=== PATIENT | female | born 1950 | race Caucasian/White ===

== ENCOUNTER → 2018-05-09 09:48 | Outpatient (CLI) | payer MEDICARE, MEDICAID, SELFPAY ==
--- NOTE | 2018-05-09 09:59 | DI.MRI.S_ITS ---
PROCEDURE: MR CERVICAL SPINE WO CON INDICATIONS: severe C6-C7 stenosis TECHNIQUE: Noncontrast sagittal T1 spin echo and T2 fast spin echo, sagittal STIR, foraminal oblique sagittal T2 fast spin echo, and axial gradient echo or T2 fast spin echo through the cervical spine. COMPARISON: [facility], MR, C-SPINE WITHOUT CONTRAST, 03/29/2017, 11:31. Outside Facility, RG, CT FULL SPINE, 07/19/2016, 14:03. [facility], MR, C-SPINE WITHOUT CONTRAST, 02/04/2016, 12:52. [facility], MR, C-SPINE WITHOUT CONTRAST, 05/20/2015, 8:58. [facility], CT, C-SPINE WITHOUT CONTRAST, 01/21/2015, 14:11. [facility], CT, C-SPINE WITHOUT CONTRAST, 05/16/2014, 23:15. [facility], MR, C-SPINE WITHOUT CONTRAST, 07/03/2009, 8:59. FINDINGS: Image quality: Excellent. Alignment and Curvature: There is normal bony alignment. Bone Marrow: Benign, intraosseous hemangioma noted in the T1 vertebral body is stable compared to prior exams. 1.0 cm in diameter sclerotic lesion in the T1 vertebral body is stable compared to prior examinations obtained 03/29/17/07/19/2016, 02/04/2016 and 05/20/2015. Spinal Cord: Visualized spinal cord has normal size and signal. No cerebellar tonsillar herniation. Paraspinous Soft Tissues: No paravertebral masses. Prevertebral soft tissues are normal in thickness. C2-C3: Loss of disc signal. Small central disc protrusion. Mild right and moderate left facet hypertrophy. Mild narrowing of the central canal secondary to disc disease. Moderate left neural foraminal narrowing secondary to disc and facet disease which is progressed slightly in interval since prior exam obtained 03/29/17. C3-C4: Loss of the signal. Mild, diffuse disc bulge. Small central disc protrusion. Small disc protrusion abuts and slightly flattens the anterior margin of the cervical spinal cord which is stable compared to prior examinations. [id number] narrowing of the central canal secondary to disc disease. Mild bilateral facet hypertrophy. Mild right uncovertebral joint hypertrophy. Moderate right and mild left neural foraminal narrowing secondary to disc disease, facet hypertrophy and uncovertebral joint hypertrophy which is stable in appearance compared to MRI obtained 03/29/17. C4-C5: Loss of disc signal and mild loss of disc height. Mild, diffuse disc bulge. Diffuse disc bulge abuts the anterior margin of the cervical spinal cord causing slight flattening deformity. Mild bilateral facet hypertrophy. Moderate to severe narrowing of the central canal secondary to disc disease and facet hypertrophy. Mild right uncovertebral joint hypertrophy. Moderate right and mild left neural foraminal narrowing secondary to disc disease, facet hypertrophy and uncovertebral joint hypertrophy which is stable compared to 03/29/17. C5-C6: Loss of disc signal and height. Anterior endplate osteophytosis. Mild, diffuse disc bulge. Mild bilateral facet hypertrophy. Moderate to severe narrowing of the central canal secondary to disc disease and facet hypertrophy which has progressed slightly in interval since prior exam obtained 03/29/2017. Mild to moderate bilateral neural foraminal narrowing secondary to disc disease, facet hypertrophy and uncovertebral joint hypertrophy which is stable compared to 03/29/17. C6-C7: Loss of disc signal and height. Anterior endplate osteophytosis. Moderate, diffuse disc bulge. Mild bilateral facet hypertrophy. Severe narrowing of the central canal secondary to disc disease and facet hypertrophy which is stable compared to 03/29/2017. Moderate to severe bilateral neural foraminal narrowing secondary to disc disease, facet hypertrophy and uncovertebral joint hypertrophy. Slight flattening deformity of the exiting bilateral C7 nerve roots secondary to neural foraminal narrowing is stable compared to 03/29/17. C7-T1: Loss of disc signal. Mild, diffuse disc bulge. Small central disc protrusion. Moderate bilateral facet hypertrophy. Moderate narrowing of the central canal secondary to disc disease and facet hypertrophy. Moderate right and [id number]-[id number] left neural foraminal narrowing secondary to disc disease and facet hypertrophy with slight flattening deformity the exiting left C8 nerve root which is stable compared to 03/29/17. IMPRESSION: 1. Multilevel degenerative disc disease. 2. Multilevel facet arthropathy. 3. Multilevel uncovertebral joint hypertrophy. 4. Severe C6-C7 central canal narrowing. Moderate to severe C4-C5 and C5-C6 central canal narrowing. Moderate C7--T1 and central canal narrowing. Mild C2-C3 and C3-C4 central canal narrowing. 5. Moderate left C2-C3 neural foraminal narrowing. Moderate right and mild left C3-C4 neural foraminal narrowing. Moderate right and mild left C4-C5 neural foraminal narrowing. Mild to moderate bilateral C5-C6 neural foraminal narrowing. Moderate to severe bilateral C6-C7 neural foraminal narrowing. Moderate right and moderate to severe left C7-T1 neural foraminal narrowing. 6. Small central C4-C5 disc protrusion and diffuse C6-C7 disc bulge abut the anterior margin of the cervical spinal cord causing slight flattening deformity. Please correlate with clinical data. 7. Flattened deformity the exiting bilateral C7 nerve roots and the exiting left C8 nerve root secondary to neural foraminal narrowing. Please correlate with clinical data. 8. There has been slight progression of left C2-C3 neural foraminal narrowing and C5-C6 central canal narrowing compared to 03/29/2017. Exam is otherwise stable compared to prior exams. Dictated by: Annia Rubin MD, PhD on 05/09/2018 at 15:00 Approved by: Annia Rubin MD, PhD on 05/09/2018 at 15:55
== END ==
PROVIDERS: Family Provider Radiology Diagnostic Radiology; PCP Family Medicine; Visit Provider Family Medicine
DX: M48.02 Spinal stenosis, cervical region (principal); M50.31 Other cervical disc degeneration, high cervical region; M47.812 Spondylosis without myelopathy or radiculopathy, cervical region; M50.20 Other cervical disc displacement, unspecified cervical region
CPT/HCPCS: 72141

== ENCOUNTER → 2019-01-24 13:32 | Outpatient (CLI) | payer MEDICARE, MEDICAID, SELFPAY ==
--- NOTE | 2019-01-24 | DI.ECHO.S_ITS ---
[facility] +---------+ : : [address] : : : : [id number] : : : : Phone: [phone]+ Echocardiogram Report + + :Name: GERMAN MENCHACA Study Date: 01/24/2019 Height: 71 in : :[facility] Exam Location: [facility] Weight: 286 lb : : Gender: Female BSA: 2.5 m2 : :: 1950 Age: 68 yrs BP: 180/88 mmHg: :Reason For Study: AORTIC STENOSIS : : Performed By: Ahmet Ferro : :Referring: ANGELO TREJO : + + Interpretation Summary 1) Normal left ventricular thickness, size, wall motion, and systolic function (EF 60-65%). 2) Normal right ventricular size and function. 3) There is mild to moderate aortic regurgitation. 4) Hypertension present during the study (BP 180/88mmHg). 5) Compared to the Echo done 10/31/2016, no significant change. Procedure: A two-dimensional transthoracic echocardiogram with color flow and Doppler was performed. The study quality was technically difficult. Comparison is made with the echocardiogram of 10/31/16. The patient was supine due to shoulder pain. The patient declined the use of contrast. The patient was in normal sinus rhythm during the exam. Left Ventricle: The left ventricle is normal in size. Left ventricular wall thickness is mildly increased. The ejection fraction is estimated to be 65- 70%. There are no focal wall motion abnormalities. Right Ventricle: The right ventricle grossly appears normal in size with probable normal systolic function. Atria: The left atrial size is normal. Right atrium not well visualized secondary to technical limitations. The interatrial septum is intact with no evidence for an atrial septal defect. Mitral Valve: The mitral valve is normal in structure and function. There is trace mitral regurgitation. Aortic Valve: The aortic valve is mildly calcified. There is no aortic valve stenosis. There is mild to moderate aortic regurgitation. Tricuspid Valve: The tricuspid valve is normal in structure and function. There is mild tricuspid regurgitation. The right ventricular systolic pressure is estimated to be at least 38 mmHg based on an estimated right atrial pressure of 3 mm Hg. Pulmonic Valve: The pulmonic valve is not well seen, but is grossly normal. There is no pulmonic valvular regurgitation. Great Vessels: The aortic root is normal size. The ascending aorta is at the upper limits of normal in size. The pulmonary artery is normal size. The IVC is of normal diameter and collapses greater than 50% with a sniff. This suggests a low right atrial pressure of 3 mm Hg. Pericardium/ Pleura There is no pericardial effusion. There is no pleural effusion. MMode/2D Measurements & Calculations LVIDd: 5.0 cm LVOT diam: 2.0 cm LVIDs: 2.7 cm Ao root diam: 3.5 cm FS: 45.6 % Aortic Jxn: 3.1 cm EPSS: 0.37 cm asc Aorta Diam: 3.8 cm IVSd: 1.4 cm LVPWd: 1.3 cm LV leblanc. diameter/BSA (cm/m^2): 2.0 LV sys. diameter/BSA (cm/m^2): 1.1 LA dimension: 3.1 cm IVC diam: 1.9 cm LA A2 area: 20.9 cm2 LA A4 area: 24.3 cm2 LA length (vol): 6.6 cm LA vol: 65.4 ml LA vol index: 26.6 ml/m2 Doppler Measurements & Calculations Ao V2 max: 199.9 cm/sec LVOT Max Valentino: 124.2 cm/sec Ao V2 mean: 138.3 cm/sec LV V1 max P.2 mmHg Ao max P.0 mmHg LV V1 VTI: 29.1 cm Ao mean P.5 mmHg ALINA(I,D): 2.4 cm2 Ao V2 VTI: 36.8 cm ALINA(V,D): 1.9 cm2 sev ratio: 0.79 ALINA indexed to BSA (cm^2/m^2): 0.98 AI P1/2t: 429.1 msec AI dec slope: 279.6 cm/sec2 MV E max valentino: 106.0 cm/sec TR max valentino: 296.7 cm/sec MV A max valentino: 87.7 cm/sec TR max P.2 mmHg MV E/A: 1.2 PA V2 max: 97.9 cm/sec Med Peak E' Valentino: 5.2 cm/sec PA V2 mean: 76.3 cm/sec E/E' med: 20.5 PA mean P.5 mmHg Lat Peak E' Valentino: 8.9 cm/sec PA pr(Accel): 41.6 mmHg E/E' lat: 11.9 PA Accel Time: 0.07 sec E/e' average: 16.2 MV dec time: 0.20 sec SV(LVOT): 88.2 ml Reading Physician:04:39 PM
== END ==
PROVIDERS: Family Provider Radiology Diagnostic Radiology; PCP Internal Medicine; Visit Provider Internal Medicine Cardiovascular Disease
DX: I08.2 Rheumatic disorders of both aortic and tricuspid valves (principal); I10 Essential (primary) hypertension
CPT/HCPCS: 93306

== ENCOUNTER → 2020-03-18 13:37 | Outpatient (CLI) | payer MEDICARE, MEDICAID, SELFPAY ==
--- NOTE | 2020-03-18 | DI.ECHO.S_ITS ---
[facility]---------+ [facility] +---------+ : : [address] : : : : [id number] : : : : Phone: [phone] +---------+ Echocardiogram Report + + :Name: GERMAN MENCHACA Study Date: 03/18/2020 Height: 71 in : :[facility] Weight: 308 lb : : Gender: Female BSA: 2.5 m2 : :: 1950 Age: 69 yrs BP: 152/85 mmHg: :Reason For Study: Aortic insufficiency : :Ordering Physician: Alessia Kitchen : :Flor[place] Performed By: Nano Garcia : :Referring: ALESSIA GANT : + + Interpretation Summary The left ventricle is normal in size. Left ventricular wall thickness is mild- moderately increased. Left ventricular systolic function is normal without focal wall motion abnormalities. The ejection fraction is estimated to be 65- 70%. The right ventricle is not well visualized. The right ventricle is grossly normal size. The right ventricular systolic function is normal. The right ventricular systolic pressure is estimated to be at least 37 mmHg based on an estimated right atrial pressure of 8 mm Hg. The left atrial size is normal. Right atrial size is normal. There is mild aortic regurgitation. Compared to the prior echo study, there has been a decrease in the severity of aortic regurgitation. There is no other significant valvular heart disease. The ascending aorta is mild-moderately enlarged which has slightly increased since prior study. Procedure: A two-dimensional transthoracic echocardiogram with color flow and Doppler was performed. Comparison is made with the echocardiogram of 01/24/2019. The study quality was technically difficult. The patient was supine due to shoulder pain. The patient was in atrial fibrillation with rapid ventricular response during the exam with a heart rate exceeding 100 bpm. The heart rate ranged between 100-111 bpm during the study. Left Ventricle: The left ventricle is normal in size. Left ventricular wall thickness is mild-moderately increased. Left ventricular systolic function is normal without focal wall motion abnormalities. The ejection fraction is estimated to be 65-70%. Right Ventricle: The right ventricle is not well visualized. The right ventricle is grossly normal size. The right ventricular systolic function is normal. Atria: The left atrial size is normal. Right atrial size is normal. There is no Doppler evidence for an interatrial shunt. Mitral Valve: The mitral valve is normal in structure and function. There is no mitral regurgitation noted. Aortic Valve: There is mild aortic valve sclerosis. The aortic valve is grossly normal. The aortic valve opens well. There is mild aortic regurgitation. Compared to the prior echo study, there has been a decrease in the severity of aortic regurgitation. Tricuspid Valve: The tricuspid valve is normal in structure and function. There is a trace or physiologic amount of tricuspid regurgitation. The right ventricular systolic pressure is estimated to be at least 37 mmHg based on an estimated right atrial pressure of 8 mm Hg. Pulmonic Valve: The pulmonic valve is normal in structure and function. There is no pulmonic valvular regurgitation. There is no other significant valvular heart disease. Great Vessels: The aortic root is normal size. The ascending aorta is mild- moderately enlarged. The IVC is dilated (diameter is greater than 2.1 cm) yet it collapses greater than 50% with a sniff. This suggests a right atrial pressure of 8 mm Hg. Pericardium/ Pleura There is no pericardial effusion. There is no pleural effusion. MMode/2D Measurements & Calculations LVIDd: 4.3 cm LVOT diam: 1.9 cm LVIDs: 3.2 cm Ao root diam: 3.4 cm FS: 27.4 % asc Aorta Diam: 4.0 cm IVSd: 1.2 cm Ao Arch Diam (Prox Trans): 3.6 cm LVPWd: 1.3 cm LV leblanc. diameter/BSA (cm/m^2): 1.7 LV sys. diameter/BSA (cm/m^2): 1.2 LA A2 area: 21.8 cm2 RA long axis: 5.3 cm LA A4 area: 23.2 cm2 RA area: 20.8 cm2 LA length (vol): 5.6 cm RA vol: 70.1 ml LA vol: 76.1 ml RA : 27.7 ml/m2 LA vol index: 30.0 ml/m2 IVC diam: 2.2 cm RVD1 (basal): 3.1 cm TAPSE: 1.8 cm Doppler Measurements & Calculations Ao V2 max: 214.6 cm/sec LVOT Max Valentino: 108.4 cm/sec Ao V2 mean: 136.5 cm/sec LV V1 max P.7 mmHg Ao max P.6 mmHg LV V1 VTI: 20.2 cm Ao mean P.2 mmHg ALINA(I,D): 1.7 cm2 Ao V2 VTI: 34.3 cm ALINA(V,D): 1.5 cm2 sev ratio: 0.59 ALINA indexed to BSA (cm^2/m^2): 0.69 MV E max valentino: 108.7 cm/sec TR max valentino: 269.8 cm/sec MV A max valentino: 2.1 cm/sec TR max P.1 mmHg MV E/A: 52.9 PA V2 max: 89.5 cm/sec Med Peak E' Valentino: 11.1 cm/sec PA V2 mean: 57.9 cm/sec E/E' med: 9.8 PA mean P.6 mmHg Lat Peak E' Valentino: 11.6 cm/sec E/E' lat: 9.4 E/e' average: 9.6 MV dec time: 0.19 sec SV(LVOT): 60.1 ml Reading Physician:06:12 PM
== END ==
PROVIDERS: Family Provider Radiology Diagnostic Radiology; PCP Internal Medicine; Referring Provider Internal Medicine Cardiovascular Disease; Visit Provider Internal Medicine Cardiovascular Disease
DX: I35.1 Nonrheumatic aortic (valve) insufficiency (principal); I77.89 Other specified disorders of arteries and arterioles
CPT/HCPCS: 93306

== ENCOUNTER 2025-07-28 03:03 | Emergency (ER) | payer MEDICARE, MEDICAID, SELFPAY ==
[2025-07-28 03:19] VITALS: BMI 39.2
--- NOTE | 2025-07-28 04:13 | ED_ITS ---
HPI - Wound/Laceration General Chief Complaint: Wound/Laceration Stated Complaint: GLF Time Seen by Provider: 07/28/25 03:08 Source: patient and EMS Mode of arrival: EMS History of Present Illness HPI narrative: 74-year-old female history of atrial fibrillation not on any AV dajuan blocking agents or anticoagulants, brought in via EMS today C-collared after having 2 syncopal episodes where she did not realize she was on the ground and she had passed out. She did hit her face on the weight down unsure what it is and is here specifically for only facial laceration at her request. 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 She is states she has a iodine allergy and is refusing scans for head and chest to rule out any acute pathology including blood clots and brain hemorrhage and CVA. I discussed with her the importance of having the studies as disability and decompensation could be results of refusing care here in the ED. She is only willing to have an US of her RLE at this time. Other than what is stated 14 point review of system is negative. Related Data Home Medications ?Medication ?Instructions ?Recorded ?Confirmed [see scan 05/24/16] ##0 05/24/16 08/06/18 Previous Rx's ?Medication ?Instructions ?Recorded [Carpal tunnel splint] topical PRN ##2 01/22/18 Disabled Parking #1 ea 08/06/18 Allergies Allergy/AdvReac Type Severity Reaction Status Date / Time Penicillins (PENICILLINS) Allergy Unknown Verified 07/28/25 03:19 Sulfa (Sulfonamide Allergy Unknown Verified 07/28/25 03:19 Antibiotics) Fish Containing Products AdvReac Verified 07/28/25 03:19 MOLD Allergy Unknown Uncoded 07/28/25 03:19 contrast AdvReac Unknown rash Uncoded 07/28/25 03:19 metal AdvReac Unknown rash/swelli Uncoded 07/28/25 03:19 ng/dermatit is Review of Systems Review of Systems ROS Unobtainable: All systems reviewed & are unremarkable except as noted in HPI and below Patient History Medical History (Updated 07/28/25 @ 05:14 by Roverto Gillette, DO) Atrial fibrillation Morbid obesity Aortic regurgitation Seizures, generalized convulsive Chronic left sacroiliac joint pain Joint pain Chronic pain syndrome Hypertension Hearing loss Tinnitus Chronic headaches Osteoarthritis Sleep apnea Myoclonus History of radiation exposure to spine Scheuermann's disease CTS (carpal tunnel syndrome) Deviated septum Anal fissure (1979) 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 (05/03/16) Spinal stenosis of cervical region (05/03/16) Surgical History S/P surgery on nasal septum (1995) History of rectal sphincterotomy (1979) Status post laminectomy (1993) Status post eye surgery (1990) Status post hemorrhoidectomy (1974) Status post appendectomy (1974) Status post hysterectomy (1974) Status post bilateral salpingo-oophorectomy (BSO) (1974) Status post delivery (1974) Social History marital status: (Single) number of children: 1 household members: none lives independently: Yes caregiver/support person: No housing: condominium pets and animals: No (Plants.) education level: other (Doctorate) occupational status: disabled (Retired) 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 Well-developed patient, in mild distress. HEAD: Atraumatic. Normocephalic. EYES: Pupils equal round and reactive. Extraocular motions intact. No scleral icterus. No injection or drainage. ENT: Nose without bleeding, purulent drainage. Throat without erythema, tonsillar hypertrophy or exudate. Airway patent. NECK: Trachea midline. Non tender CARDIOVASCULAR: Regular rate and rhythm without murmurs, gallops, or rubs. RESPIRATORY: Clear to auscultation. Breath sounds equal bilaterally. No wheezes, rales, or rhonchi. GASTROINTESTINAL: Abdomen soft, non-tender, nondistended. EXTREMITIES: No edema or joint tenderness. BACK: Nontender without deformity or crepitance. No flank tenderness. NEURO: AOx3. GCS 15 nonfocal neuro exam SKIN: Right lower leg red swollen tender to palpate and increased calf girth compared to left motor sensory intact with diminished pulses +1Dp +1 PT cap refill 3 secs. She has multiple open sores on both arms, legs, back, chest, a nd abdomen Procedures Laceration Repair Laceration 1: Time of procedure: 05:12 Site: lip Size (cm): 1.5 Description: irregular Depth: simple, single layer Local Anesthetic: lidocaine 1% and with epi Amount of anesthesia used (mL): 3 Pre-repair: wound explored, irrigated extensively and deep structures intact Skin layer closed with: nylon Skin layer suture size: 5-0 Number of sutures: 6 MDM - Wound/Laceration MDM Narrative Medical decision making narrative: Limited vital signs, nurse triage note, medication list, all reviewed. Patient was of sound mind and judgement and not under any influence of alcohol, prescription and non prescription drugs has refused imaging studies, lab work, full set of vital signs was only going to have lip suture and ultrasound of right leg. She was willing to sign out Against Medical Advice. Differential diagnosis aneurysm, hemorrhage, CVA, PE, STEMI, NSTEMI, DVT, electrolyte derangement, cellulitis, mrsa, abscess, osteomyelitis, ischemic limb. Discharge Plan Departure Patient Disposition: Left Against Medical Advice Clinical Impression: Left against medical advice Laceration of lip Qualifiers: Encounter type: initial encounter Qualified Code(s): S01.511A - Laceration without foreign body of lip, initial encounter Syncope Qualifiers: Syncope type: unspecified Qualified Code(s): R55 - Syncope and collapse Activity Restrictions/Additional Instructions: Return with new or worsening symptoms. Follow up with PCP in 3-5 days for suture removal Prescriptions: No Action [see scan 05/24/16] Qty: 0 [Carpal tunnel splint] Topical PRNQty: 2 0RF (DME) Disabled Parking Qty: 1 0RF Rx Instructions: Patient qualifies for disabled parking as per the attached form. Referrals: Miscellaneous,Doctor, MD [Primary Care Provider, Medical] Stand Alone Forms: Patient Portal/API, Against Med. Advice (Bulgarian)
--- NOTE | 2025-07-28 04:13 | DI.US.S_ITS ---
PROCEDURE: US PERIPH VENOUS LOW EXTREM RT INDICATIONS: EDEMA TECHNIQUE: Real-time imaging, as well as color and pulse Doppler interrogation, were performed of the lower extremity deep veins from the inguinal ligament to the popliteal fossa, with documentation of the visualized calf veins. COMPARISON: None. FINDINGS: The common femoral, femoral, popliteal veins are normally compressible, and free of intraluminal thrombus. The calf veins are not well visualized secondary to edema. Color and pulse Doppler demonstrate normal phasic intraluminal flow. There is normal augmentation response to distal compression maneuver. IMPRESSION: No findings of lower extremity deep venous thrombosis. Approved by: Roslyn Dubois M.D.,Ph.D. on 07/28/2025 at 6:23
--- NOTE | 2025-07-28 05:09 | PC.NURSE ---
Patient declining full exam, declines tdap, declines to wear c-collar. At this time patient willing to rule out blood clot to her right lower extremity only. Her caregiver is at bedside with her at this time.
== END 2025-07-28 07:16 | disposition left against medical advice (07) ==
PROVIDERS: Emergency Provider Family Medicine; Family Provider Radiology Diagnostic Radiology
DX: S01.511A Laceration without foreign body of lip, initial encounter (principal); R55 Syncope and collapse
CPT/HCPCS: 12011; 93971; 99281; 99283